=== PATIENT | female | born 1955 | race Two or more races ===

== ENCOUNTER 2023-09-09 09:45 | Inpatient (IN) | payer OTHER ==
[~2023-09-09] VITALS: Ht 172.7 cm; Wt 117.0 kg
[~2023-09-09 09:45] MED LIST: ADULT LOW DOSE81 M1 PO; ATORVASTATIN CA10 MG; BACTRIM DS TAB1 EACH PO; CHLORTHALIDONE50 MG; DITROPAN XL10 MG PO; HYDROXYCHLOROQ200 MG; INTEGRA PLUS C1 EACH PO; OXYC1TAB9 PO; VERELAN120 MG PO; VITAMIN D31250 MCG; XARELTO10 MG PO; [UNRECOGNIZED DRUG - OTHER] PO
[2023-09-09 11:10] LABS: URINE APPEARANCE Clear; URINE BILIRRUBIN Negative (NEGATIVE); URINE BLOOD Negative; URINE COLOR Yellow; URINE GLUCOSE Negative (NEGATIVE); URINE LEUKOCYTE Large; URINE NITRATE Positive; URINE PROTEIN Negative (NEGATIVE)
[2023-09-09 11:11] LABS: URINE EPITHELIAL CELLS 34.6 uL (0.0-38.8); URINE RBC 6.7 uL (0.0-20.8); URINE WBC 301.1 uL (0.0-23.2)
[2023-09-09 11:19] LABS: HEMATOCRIT 43.9 % (36.0-45.00); MEAN CELL VOLUME 87.6 fL (80.00-100.00); MEAN CORPUSCULAR HEMOGLOBIN 29.9 pg (27.00-32.0); MEAN CORPUSCULAR HGB CONC 34.2 g/dl (32.0-36.0); PLATELET COUNT 232 K/uL (150-450); RED BLOOD COUNT 5.02 M/uL (4.00-6.00); RED CELL DISTRIBUTION WIDTH 14.3 % (11.5-14.5)
[2023-09-09 11:25] LABS: URINE BACTERIA > 9821.5 uL (0.0-1933)
[2023-09-09 11:45] LABS: ALBUMIN 3.8 gm/dL (3.4-5.0); BILIRUBIN TOTAL 0.63 mg/dL (0.3-1.2); CALCIUM 9.4 mg/dL (8.5-10.1); CREATININE SERUM 0.62 mg/dL (0.55-1.02); GFR 96.01; GLOBULINA 3.5 G/DL (2.4-3.5); POTASSIUM 4.25 mEq/L (3.5-5.1); TOTAL PROTEIN 7.3 gm/dL (6.4-8.2)
[2023-09-09 11:50] LABS: INR 1.05; PARTIAL THROMBOPLASTIN TIME 27.6 SECONDS (22.0-34.0)
[2023-09-16] MEDS ORDERED: CYANOCOBAL1000 MCG/1 (08:20)
[2023-09-16] MEDS ORDERED: CELECOXIB200 MG (08:20)
[2023-09-16] MEDS ORDERED: HYDROXYCHLOROQ200 MG (08:21)
[2023-09-16] MEDS ORDERED: GABAPENTIN300 M2 (08:21)
[2023-09-16] MEDS ORDERED: NIFEDIPINE ER30 MG (08:21)
[2023-09-16 12:30] LABS: HEMATOCRIT 40.7 % (36.0-45.00); HEMOGLOBIN 13.4 g/dL (12.0-15.00); RED BLOOD COUNT 4.58 M/uL (4.00-6.00)
[2023-09-17 06:27] LABS: HEMATOCRIT 37.1 % (36.0-45.00); HEMOGLOBIN 12.8 g/dL (12.0-15.00); MEAN CELL VOLUME 87.6 fL (80.00-100.00); MEAN CORPUSCULAR HEMOGLOBIN 30.2 pg (27.00-32.0); MEAN CORPUSCULAR HGB CONC 34.5 g/dl (32.0-36.0); PLATELET COUNT 195 K/uL (150-450); RED BLOOD COUNT 4.23 M/uL (4.00-6.00); RED CELL DISTRIBUTION WIDTH 14.1 % (11.5-14.5)
[2023-09-18 04:51] LABS: HEMATOCRIT 32.9 % (36.0-45.00); HEMOGLOBIN 11.4 g/dL (12.0-15.00); MEAN CELL VOLUME 87.5 fL (80.00-100.00); MEAN CORPUSCULAR HEMOGLOBIN 30.3 pg (27.00-32.0); MEAN CORPUSCULAR HGB CONC 34.7 g/dl (32.0-36.0); PLATELET COUNT 177 K/uL (150-450); RED BLOOD COUNT 3.76 M/uL (4.00-6.00); RED CELL DISTRIBUTION WIDTH 14.4 % (11.5-14.5)
[2023-09-18] MEDS ORDERED: XARELTO10 MG PO (06:48)
[2023-09-18] MEDS ORDERED: OXYC1TAB9 PO (06:48)
[2023-09-18] MEDS ORDERED: INTEGRA PLUS C1 EACH PO (06:48)
[2023-09-18] MEDS ORDERED: BACTRIM DS TAB1 EACH PO (06:48)
== END 2023-09-18 13:32 | DRG 470 ==
LOC: SURH 09-16 05:19 → O/R 09-16 05:19 → SURH 09-16 09:30
PROVIDERS: ADMIT Orthopaedic Surgery Sports Medicine; ATTEND Orthopaedic Surgery Sports Medicine
PROC: 0SRC0J9 Replacement of Right Knee Joint with Synthetic Substitute, Cemented, Open Approach (ICD-10-PCS; principal; 2023-09-16 09:30)
DX: M17.11 Unilateral primary osteoarthritis, right knee (principal); M25.561 Pain in right knee